=== PATIENT | male | born 1945 | race Two or more races ===

== ENCOUNTER 2021-11-07 20:40 | Emergency (ER) | payer OTHER ==
[~2021-11-07] VITALS: Ht 172.7 cm; Wt 116.1 kg
[2021-11-07] MEDS ORDERED: IV NS 0.9% 1,000 ML BAG IV ONE (21:00)
--- NOTE | 2021-11-07 21:12 | NUR ---
BLOOD COLLECTED AND SENT TO LAB
--- NOTE | 2021-11-07 21:16 | NUR ---
NICOLAS Singleton [facility] NUMBER [phone]
[2021-11-07 21:32] LABS: BASOPHILS % (AUTO) 0.5 % (0.0-2.0); EOSINOPHILS % (AUTO) 3.3 % (0.0-6.0); HEMATOCRIT 42 % (39-51); HEMOGLOBIN 13.9 g/dL (13.5-17.5); LYMPHOCYTES # (AUTO) 1.2 K/uL (0.8-4.8); LYMPHOCYTES % (AUTO) 14.1 % (20.0-44.0); MEAN CORPUSCULAR HGB CONC 33 g/dl (31.0-36.0); MEAN CORPUSCULAR VOLUME 95 fL (80-96); MONOCYTES # (AUTO) 0.7 K/uL (0.1-1.30); MONOCYTES % (AUTO) 8.5 % (2.0-12.0); NEUTROPHILS # (AUTO) 6.2 K/uL (1.8-8.9); NEUTROPHILS % (AUTO) 73.6 % (43.0-81.0); PLATELET COUNT (AUTO) 156 K/uL (150-450); RED BLOOD CELL COUNT(AUTO) 4.41 MIL/uL (4.5-6.0); WHITE BLOOD COUNT (AUTO) 8.4 K/uL (4.3-11.0)
[2021-11-07 21:51] LABS: CALCIUM, SERUM 8.3 mg/dL (8.5-10.1); CARBON DIOXIDE 29 mmol/L (21-32); CHLORIDE 107 mmol/L (98-107); CREATININE 1.1 mg/dL (0.6-1.3); GLUCOSE 128 mg/dL (74-106); POTASSIUM 4.1 mmol/L (3.5-5.1); SODIUM SERUM 144 mmol/L (136-145); UREA NITROGEN, BLOOD 24 mg/dL (7-18)
--- NOTE | 2021-11-07 22:28 | NUR ---
[facility] PAGED
--- NOTE | 2021-11-07 23:00 | NUR ---
CALL FROM MAUPIN BRENNA. [facility] ETA 0000
--- NOTE | 2021-11-08 00:15 | NUR ---
REPORT GIVEN TO EMS AT BEDSIDE
[2021-11-08 00:59] VITALS: BP 148/79
== END 2021-11-08 01:00 | disposition home or self-care (01) ==
LOC: ER 20:45
DX: R55 Syncope and collapse (principal); E86.0 Dehydration; J44.9 Chronic obstructive pulmonary disease, unspecified; Z88.0 Allergy status to penicillin; Z88.2 Allergy status to sulfonamides; Z88.8 Allergy status to other drugs, medicaments and biological substances
CPT/HCPCS: 36415; 71045; 80048; 84484; 85025; 85730; 93005; 96360; 99285; A4364; J7030

== ENCOUNTER 2022-02-12 15:00 | Emergency (ER) | payer OTHER ==
[~2022-02-12] VITALS: Ht 172.7 cm; Wt 108.9 kg
--- NOTE | 2022-02-12 15:12 | NUR ---
GABE [id number] "From [facility]- Was dancing mechanical trip/fall left hip pain". In room air and denies SOB. No apparent deformity noted. Will continue to monitor the patient.
--- NOTE | 2022-02-12 15:25 | NUR ---
x-ray tech at the bedside
--- NOTE | 2022-02-12 16:32 | NUR ---
CALLED [facility] [phone] VEGA BACK FOR TRANSPORT.
--- NOTE | 2022-02-12 17:33 | NUR ---
PSYCHIATRIC THERAPIST ETA 1800
--- NOTE | 2022-02-12 18:40 | NUR ---
CALLED [facility] [phone] ETA IS 1830 BY [facility] THEY SHOULD BE HERE IN 10-15 MINS. PER SEAN
--- NOTE | 2022-02-12 19:10 | NUR ---
REPORT GIVEN TO AMBULANCE STAFF
--- NOTE | 2022-02-12 19:10 | NUR ---
Patient discharged to home in stable condition. Written and verbal after care instructions given. Patient verbalizes understanding of instruction.
[2022-02-12 19:14] VITALS: BP 138/85
== END 2022-02-12 19:14 | disposition home or self-care (01) ==
LOC: ER 15:11
DX: S70.02XA Contusion of left hip, initial encounter (principal); J44.9 Chronic obstructive pulmonary disease, unspecified; J45.909 Unspecified asthma, uncomplicated; Z86.59 Personal history of other mental and behavioral disorders; Z88.0 Allergy status to penicillin; Z88.2 Allergy status to sulfonamides; Z88.8 Allergy status to other drugs, medicaments and biological substances; W18.30XA Fall on same level, unspecified, initial encounter; Y93.41 Activity, dancing; Y92.89 Other specified places as the place of occurrence of the external cause; Y99.8 Other external cause status
CPT/HCPCS: 73502

== ENCOUNTER 2022-05-25 14:07 | Emergency (ER) | payer OTHER ==
[~2022-05-25] VITALS: Ht 177.8 cm; Wt 108.9 kg
[2022-05-25] MEDS ORDERED: ALBUTEROL FS 2.5 MG/3 ML VIAL.NEB ONE ×2 (14:46→19:07)
[2022-05-25] MEDS ORDERED: predniSONE 20 MG TABLET ONE (14:46)
[2022-05-25] MEDS ORDERED: IPRATROPIUM NEB FS 0.5 MG/2.5 ML AMPUL.NEB ONE ×2 (14:46→19:07)
--- NOTE | 2022-05-25 14:47 | NUR ---
RT AT BEDSIDE FOR BREATHING TREATMENT.
--- NOTE | 2022-05-25 14:51 | NUR ---
PREDNISONE ADMINSTERED ORDERED
--- NOTE | 2022-05-25 14:55 | NUR ---
STEMMER MACHINE AT BEDSIDE FOR XRAY
[2022-05-25] MEDS ORDERED: IPRATROPIUM NEB FS 0.5 MG/2.5 ML AMPUL.NEB NEB ONE ×2 (15:00→18:30)
[2022-05-25] MEDS ORDERED: ALBUTEROL FS 2.5 MG/3 ML VIAL.NEB NEB ONE ×2 (15:00→18:30)
[2022-05-25] MEDS ORDERED: predniSONE 20 MG TABLET PO ONE (15:00)
[2022-05-25 15:09] LABS: BASOPHILS % (AUTO) 0.6 % (0.0-2.0); EOSINOPHILS % (AUTO) 3.5 % (0.0-6.0); HEMATOCRIT 39 % (39-51); HEMOGLOBIN 12.9 g/dL (13.5-17.5); LYMPHOCYTES # (AUTO) 1.3 K/uL (0.8-4.8); LYMPHOCYTES % (AUTO) 19.7 % (20.0-44.0); MEAN CORPUSCULAR HGB CONC 33 g/dl (31.0-36.0); MEAN CORPUSCULAR VOLUME 92 fL (80-96); MONOCYTES # (AUTO) 0.6 K/uL (0.1-1.30); MONOCYTES % (AUTO) 8.9 % (2.0-12.0); NEUTROPHILS # (AUTO) 4.6 K/uL (1.8-8.9); NEUTROPHILS % (AUTO) 67.3 % (43.0-81.0); PLATELET COUNT (AUTO) 144 K/uL (150-450); RED BLOOD CELL COUNT(AUTO) 4.23 MIL/uL (4.5-6.0); WHITE BLOOD COUNT (AUTO) 6.8 K/uL (4.3-11.0)
[2022-05-25 15:32] LABS: ALANINE AMINOTRANSFERASE 27 U/L (12-78); ALBUMIN 3.4 g/dL (3.4-5.0); ALKALINE PHOSPHATASE 52 U/L (46-116); ASPARTATE AMINOTRANSFERASE 17 U/L (15-37); BILIRUBIN,DIRECT 0.1 mg/dL (0.0-0.2); BILIRUBIN,TOTAL 0.6 mg/dL (0.2-1.0); CALCIUM, SERUM 8.5 mg/dL (8.5-10.1); CARBON DIOXIDE 29 mmol/L (21-32); CHLORIDE 104 mmol/L (98-107); CREATININE 1.1 mg/dL (0.6-1.3); GLUCOSE 110 mg/dL (74-106); POTASSIUM 4.1 mmol/L (3.5-5.1); SODIUM SERUM 139 mmol/L (136-145); TOTAL PROTEIN, SERUM 6.7 g/dL (6.4-8.2)
[2022-05-25 15:40] LABS: UREA NITROGEN, BLOOD 19 mg/dL (7-18)
[2022-05-25] MEDS ORDERED: VANCOMYCIN 1 GM in IV D5W 250 ML IV ONE (17:00)
--- NOTE | 2022-05-25 17:05 | NUR ---
COVID SWAB COLLECTED AND SENT TO LAB
--- NOTE | 2022-05-25 18:33 | NUR ---
[facility]ON CALLED WITH ACCEPTANCE INFO GOING TO [facility] UNDER THE CARE OF DR. LIMON NUMBER FOR REPORT [phone] ETA FOR [facility] FINISHING SUPERVISOR IS 1930 AWAITING FOR [facility]
--- NOTE | 2022-05-25 19:02 | NUR ---
PATIENT REPORT GIVEN TO JESUS MANUEL GALINDO RN AT [facility].
--- NOTE | 2022-05-25 19:10 | NUR ---
RT AT BEDSIDE FOR BREATHING [place]
--- NOTE | 2022-05-25 19:55 | NUR ---
[facility] AT BED SIDE TO HEAD WAITRESS THE PT
--- NOTE | 2022-05-25 20:13 | NUR ---
PATIENT BEING TRANSFERRED TO [facility] IN STABLE CONDITION VIA AMBULANCE.
[2022-05-25 20:14] VITALS: BP 160/85
== END 2022-05-25 21:08 | disposition short-term general hospital (02) ==
LOC: ER 14:09
DX: J44.0 Chronic obstructive pulmonary disease with (acute) lower respiratory infection (principal); J18.9 Pneumonia, unspecified organism; J44.1 Chronic obstructive pulmonary disease with (acute) exacerbation; Z87.01 Personal history of pneumonia (recurrent); J90 Pleural effusion, not elsewhere classified; Z20.822 Contact with and (suspected) exposure to COVID-19; Z88.0 Allergy status to penicillin; Z88.2 Allergy status to sulfonamides; Z88.8 Allergy status to other drugs, medicaments and biological substances; I25.10 Atherosclerotic heart disease of native coronary artery without angina pectoris
CPT/HCPCS: 99291; 96365; 87426; 93005; 71045; 85025; 80048; 87040 ×2; 83605; 80076; 36415; 84484 ×2; 94799; 94640 ×2; J7512; J3370; C9803; J7060